=== PATIENT | male | born 1985 | race Caucasian/White ===

== ENCOUNTER 2023-04-09 08:47 | Outpatient (CLI) | payer OTHER | END 2023-04-09 08:48 | disposition home or self-care (01) | LOC: CSHCT 08:47 | PROVIDERS: ATTEND Internal Medicine Critical Care Medicine | DX: R91.1 Solitary pulmonary nodule (principal); R91.8 Other nonspecific abnormal finding of lung field; K76.0 Fatty (change of) liver, not elsewhere classified | CPT/HCPCS: 71250 ==